=== PATIENT | female | born 1940 | race Caucasian/White ===

== ENCOUNTER → 2017-08-29 | Outpatient (CLI) | payer MEDICARE, OTHER | LOC: CARD 12:31 | PROVIDERS: ATTEND Internal Medicine Cardiovascular Disease | DX: D64.9 Anemia, unspecified (principal); R07.89 Other chest pain; M19.90 Unspecified osteoarthritis, unspecified site; I10 Essential (primary) hypertension; E78.2 Mixed hyperlipidemia; I34.0 Nonrheumatic mitral (valve) insufficiency | CPT/HCPCS: 93306 ==

== ENCOUNTER → 2017-08-30 | Outpatient (CLI) | payer MEDICARE, OTHER ==
[~2017-08-30] MED LIST: CATHETER FLUSH 10 ML SYR IV PRN; REGADENOSON 0.4 MG/5 ML SYR (LEXISCAN) IV ONE
--- NOTE | 2017-08-30 22:56 | STRESS TEST ---
DATE OF SERVICE: 08/30/2017 LEXISCAN MYOVIEW STRESS TEST REPORT REFERRING PHYSICIAN: Dr. David Lange. Baseline heart rate is 71. Baseline blood pressure 177/69. Baseline EKG, sinus rhythm with no ischemic changes. In summary, the patient was injected with 10.89 mCi of technetium-99 Myoview and the resting images were obtained. Then, the patient received 0.4 mg of Lexiscan followed by 30.3 mCi of technetium-99 Myoview. Throughout the test, there were no EKG changes. The resting and stress images were reviewed and compared in the short axis, horizontal long axis, and vertical long axis views. Review of the images showed breast attenuation with typical female pattern. No significant ischemia or infarction was seen. SSS is 2, SDS is 0. TID value 0.95. On the gated images, the left ventricle appeared to be normal size with normal contractility. Calculated ejection fraction 64%. CONCLUSION: 1. The patient tolerated Lexiscan well. 2. Breast attenuation with no significant ischemia or infarction on SPECT images. 3. Normal left ventricular size with normal contractility. Calculated ejection fraction 64%. Job ID: [id number] DocumentID: [id number] Dictated Date: 08/30/2017 17:28:52 [employer] Director Date: 08/30/2017 22:56:05 Dictated By: ROSALIA MORALES MD
== END ==
LOC: CARD 11:42
PROVIDERS: ATTEND Internal Medicine Cardiovascular Disease
DX: D64.9 Anemia, unspecified (principal); R07.89 Other chest pain; M19.90 Unspecified osteoarthritis, unspecified site; I10 Essential (primary) hypertension; E78.2 Mixed hyperlipidemia
CPT/HCPCS: 78452; 93017

== ENCOUNTER 2021-07-22 09:00 | Outpatient (RCR) | payer MEDICARE, OTHER | END 2021-07-26 | disposition home or self-care (01) | LOC: CARD 09:00 | PROVIDERS: ATTEND Internal Medicine Cardiovascular Disease | DX: I08.0 Rheumatic disorders of both mitral and aortic valves (principal) | CPT/HCPCS: 93306 ==

== ENCOUNTER → 2021-09-08 | Outpatient (CLI) | payer MEDICARE ==
[2021-09-08 10:44] LABS: CALCIUM 9.3 MG/DL (8.5-10.1); CREATININE SERUM 1.16 MG/DL (0.60-1.30); POTASSIUM 4.2 MMOL/L (3.6-5.0)
== END ==
LOC: LAB 09:56
PROVIDERS: ATTEND Internal Medicine Cardiovascular Disease
DX: I10 Essential (primary) hypertension (principal)
CPT/HCPCS: 36415; 80048

== ENCOUNTER 2021-10-28 10:00 | Outpatient (CLI) | payer MEDICARE ==
[~2021-10-28] VITALS: Ht 157.5 cm; Wt 132.0 kg
[2021-10-28] VITALS (17 sets, daily range): BP systolic 132–189; BP diastolic 71–93
[2021-10-28] MEDS ORDERED: NS IV 1000 ML 1,000 ML ONE (10:03)
[2021-10-28] MEDS ORDERED: ATROPINE INJECTION 1 MG/10 ML SYR (ABBOTT) ONE (10:03)
[2021-10-28] MEDS ORDERED: NS IV 1000 ML 1,000 ML IV ONE (10:15)
[2021-10-28] MEDS ORDERED: CATHETER FLUSH 10 ML SYR IV PRN (10:15)
[2021-10-28] MEDS ORDERED: MELA1TAB51 PO (10:42)
[2021-10-28] MEDS ORDERED: CELE100C84 PO (10:42)
[2021-10-28] MEDS ORDERED: CARV25TA PO (10:42)
[2021-10-28] MEDS ORDERED: ASPI-1238 PO (10:42)
[2021-10-28] MEDS ORDERED: LOSA100T57 PO (10:42)
[2021-10-28] MEDS ORDERED: ROSU10TA28 PO (10:44)
[2021-10-28] MEDS ORDERED: MULT-1136 PO (10:44)
[2021-10-28] MEDS ORDERED: ROPI2TAB6 PO (10:44)
[2021-10-28] MEDS ORDERED: PANT40TA2 PO (10:44)
[2021-10-28] MEDS ORDERED: CYAN250010 PO (10:44)
--- NOTE | 2021-10-28 13:26 | Cardiac Procedure Note ---
Cardiology Procedures Date of Procedure 10/28/21 TILT TABLE TEST INDICATION: Syncope. PROCEDURE: After informed consent and in the fasting state, upright tilt table testing was performed. An intravenous catheter was placed and the patient was given 200 mL of normal saline bolus. Serial heart rate and blood pressure recordings were made approximately every 5 minutes. The patient was monitored on continuous cardiac telemetry during the test. The patient was placed on the tilt table in the supine position. The initial vital signs were a heart rate of 58 bpm with a blood pressure of 189/87 mmHg. The patient was then brought to 70 degrees upright. The immediate upright vital signs were a heart rate of 66 bpm with a blood pressure of 156/81 mmHg effectively excluding orthostatic hypotension. The patient remained in the upright position for 40 minutes. There were no significant cardiac symptoms during the test. The minimum blood pressure was 132/93 mmHg. The minimum heart rate was 57 bpm which was the final supine heart rate. After 40 minutes upright, the patient was brought back to the supine position. The final vital signs were a heart rate of 57 bpm with a blood pressure of 177/71 mmHg. This is a negative upright tilt table test results. IMPRESSION: 1. Negative upright tilt table test for vasovagal syncope. 2. If the patient has ongoing episodes of syncope, she may need an implantable loop recorder for further evaluation. Certain portions of this document may have been dictated utilizing voice recognition technology. Inherent to this technology, typographical and grammatical errors may exist. As much as I am diligent to identify and correct these mistakes, some errors may remain in the document. SANTO DA SILVA JR, MD October 28, 2021 13:26
== END 2021-10-28 11:41 | disposition home or self-care (01) ==
LOC: CARD 10:00
PROVIDERS: ATTEND Internal Medicine Cardiovascular Disease
DX: R55 Syncope and collapse (principal)
CPT/HCPCS: 93660

== ENCOUNTER → 2021-11-25 | Day surgery (SDC) | payer MEDICARE ==
[~2021-11-25] VITALS: Ht 157.5 cm; Wt 58.9 kg
[~2021-11-25] MED LIST changes: +ASPI-1238 PO; +CARV25TA PO; -CATHETER FLUSH 10 ML SYR IV PRN; +CELE100C84 PO; +CYAN250010 PO; +LIDOCAINE 2% 20 ML (XYLOCAINE) VIAL ONE; +LOSA100T57 PO; +MELA1TAB51 PO; +MULT-1136 PO; +PANT40TA2 PO; -REGADENOSON 0.4 MG/5 ML SYR (LEXISCAN) IV ONE; +ROPI2TAB6 PO; +ROSU10TA28 PO
--- NOTE | 2021-11-25 12:09 | Cardiac Procedure Note ---
Cardiology Procedures Date of Procedure 11/25/21 IMPLANTABLE LOOP RECORDER INSERTION INDICATION: Syncope. PROCEDURE: After informed consent, the left pectoral region was prepped and draped in the usual sterile fashion. I subsequently infiltrated the skin and subcutaneous tissues with 2% lidocaine for local anesthesia. I then made a geo in the skin in the fourth anterior costal space in the midclavicular line using the insertion tool. I subsequently inserted a [employer] LINQ II loop recorder (serial number [id number]), using the insertion tool. Dermabond was then applied for skin closure. A sterile antibiotic impregnated dressing was then applied. IMPRESSION: 1. Status post implantable loop recorder insertion with a [employer] LINQ II loop recorder (serial number [id number]). Certain portions of this document may have been dictated utilizing voice recognition technology. Inherent to this technology, typographical and grammatical errors may exist. As much as I am diligent to identify and correct these mistakes, some errors may remain in the document. SANTO DA SILVA JR, MD Nov 25, 2021 12:09
== END ==
LOC: CATH 10:45
PROVIDERS: ATTEND Internal Medicine Cardiovascular Disease
DX: R55 Syncope and collapse (principal); I65.23 Occlusion and stenosis of bilateral carotid arteries; E78.2 Mixed hyperlipidemia; I12.9 Hypertensive chronic kidney disease with stage 1 through stage 4 chronic kidney disease, or unspecified chronic kidney disease; N18.31 Chronic kidney disease, stage 3a; Z87.891 Personal history of nicotine dependence
CPT/HCPCS: 33285; C1764